=== PATIENT | female | born 1980 | race African-American/Black ===

== ENCOUNTER 2017-10-14 09:30 | Emergency (ER) | payer BC, OTHER ==
[~2017-10-14] VITALS: Ht 172.7 cm; Wt 99.8 kg
[~2017-10-14 09:30] MED LIST: APAP500 PO; BACTRIM DS TAB1 EACH PO; BENADRYL25 MG PO; CIPROFLOXACIN500 M1 PO; DERMOPLAST SPRA56 ML; DIPHENHYDRAMINE25 M3 PO; HYDROCORTISO28.35 G1; IBUPROFEN 200200 M1; IBUPROFEN 600600 M1 PO; INHALER; IRON325 PO; NASONEX17 GM; NEOSPORIN OINTM15 GM TP; NOHOMEMEDICATIONS; NORCO 5-325 TA1 EACH PO; OSELB75 PO; PREDNISONE 20 M20 M1 PO; PRENATAL COMPL1 EACH PO; PROVENTIL; TESSALON200 MG PO; TUCKS MEDICATE1 EAC1; TUMS PO; ZOFRAN ODT4 MG PO
[2017-10-14 10:22] LABS: BASOPHILS 0.6 % (0.0-2.0); HEMATOCRIT 37.1 % (37.0-47.0); HEMOGLOBIN 12.7 gm/dL (12.0-15.0); LYMPHOCYTES 39.3 % (24.0-44.0); MCH 34.3 pg (26.0-34.0); MCHC 34.1 g/dL (28.0-37.0); MCV 100.6 fL (80.0-100.0); MONOCYTES 11.6 % (1.0-8.0); PLATELET COUNT 270 thou/uL (150-400); POLYS 44.5 % (36.0-66.0); RBC 3.69 mil/uL (4.20-5.00); RDW 13.8 % (10.5-14.5); WBC 6.8 thou/uL (4.0-11.0)
[2017-10-14 10:31] LABS: URINE BILIRUBIN NEGATIVE (Negative); URINE BLOOD 1+ (Negative); URINE CLARITY CLODY; URINE COLOR YELLOW; URINE GLUCOSE-RANDOM* NEGATIVE (Negative); URINE KETONES NEGATIVE (Negative); URINE LEUKOCYTES 1+ (Negative); URINE NITRITE NEGATIVE (Negative); URINE PROTEIN (DIPSTICK) NEGATIVE (Negative); URINE UROBILINOGEN 0.2 E.U./dl (0.2-1.0)
[2017-10-14 10:38] LABS: CREATININE 0.8 mg/dL (0.6-1.0); POTASSIUM 3.6 mmol/L (3.5-5.1)
[2017-10-14 10:44] LABS: ALBUMIN 3.3 g/dL (3.4-5.0); TOTAL BILIRUBIN 0.3 mg/dL (<0.1-1.0); TOTAL PROTEIN 7.2 g/dL (6.4-8.2)
[2017-10-14 10:48] LABS: SQUAMOUS >10 Many /LPF (0-3)
[2017-10-14 10:49] LABS: BACTERIA >30 Many /HPF (None Seen); CASTS None Seen /LPF (None Seen); CRYSTALS None Seen /LPF (None Seen); URINE WBC 6-15 Few /HPF (0-5)
[2017-10-14 10:50] LABS: URINE RBC 3-10 Few /HPF (0-2)
[2017-10-14] MEDS ORDERED: CIPRO500 MG PO (12:02)
[2017-10-14] MEDS ORDERED: HYDROCODONE-AP1 EAC6 PO (12:02)
== END 2017-10-14 12:20 | disposition home or self-care (01) ==
LOC: ER 09:30
PROVIDERS: Nurse Practitioner Family
DX: N12 Tubulo-interstitial nephritis, not specified as acute or chronic (principal); J45.909 Unspecified asthma, uncomplicated; F17.210 Nicotine dependence, cigarettes, uncomplicated; Z88.0 Allergy status to penicillin

== ENCOUNTER 2020-02-29 17:09 | Emergency (ER) | payer OTHER ==
[~2020-02-29] VITALS: Ht 172.7 cm; Wt 108.9 kg
[~2020-02-29 17:09] MED LIST changes: +CIPRO500 MG PO; +HYDROCODONE-AP1 EAC6 PO
[2020-02-29] MEDS ORDERED: BENADRYL25 MG PO (18:19)
[2020-02-29] MEDS ORDERED: PREDNISONE 20 M20 M1 PO (18:19)
[2020-02-29] MEDS ORDERED: HEARTBURN PREVE20 MG PO (18:19)
[2020-02-29 18:37] VITALS: BP 98/55
== END 2020-02-29 18:39 | disposition home or self-care (01) ==
LOC: ER 17:09
DX: T78.1XXA Other adverse food reactions, not elsewhere classified, initial encounter (principal); L50.9 Urticaria, unspecified; R42 Dizziness and giddiness; R11.0 Nausea; J45.909 Unspecified asthma, uncomplicated; F17.210 Nicotine dependence, cigarettes, uncomplicated; Z88.0 Allergy status to penicillin; X58.XXXA Exposure to other specified factors, initial encounter